=== PATIENT | male | born 1980 | race Caucasian/White ===

== ENCOUNTER 2023-04-07 13:28 | Emergency (ER) | payer MEDICAID, SELFPAY ==
[2023-04-07 13:29] VITALS: BP 141/106; PULSE 121; RESP 16; TEMP 35.8; O2SAT 97; BMI 34.4
--- NOTE | 2023-04-07 14:44 | EDS_ITS ---
HPI History of Present Illness HPI Narrative: 43-year-old male states he injured his ankle 25 years ago around 18 years old. Never had it properly taking care of and gets chronic swelling in his ankle whenever he uses a lot. He works in [employer]. He was limping a lot recently and his boss wanted to come in to have it evaluated today. He denies any fall injury or trauma. He denies any fever or redness. Said this is very normal for his ankle to be swollen. Chief Complaint: Lower Extremity Injury Informant: patient and spouse/S.O. Occured/Mechanism Mechanism/Context: No injury and No blunt trauma Onset/Context/Timing Onset: Days Context: Gradual Onset Timing: Intermittent Quality of Pain: Dull and Aching Current Severity: Mild Maximum Severity: Mild Associated Symptoms Associated Symptoms: Negative for Parasthesia, Weakness or Loss of Funtion Narrative Narrative: 43-year-old male with acute on chronic right ankle swelling. History of prior injury. No acute trauma. Prior similar symptoms: Yes Recent Illness/Hospitalization: No PFSH PFSH no medical history Allergy/AdvReac Type Severity Reaction Status Date / Time No Known Allergies Allergy Verified 04/07/23 13:29 Social History Smoking Status: Never smoker ROS ROS ED ROS Narrative Denies recent illness. Review of Systems ROS Unobtainable: Denies due to encephalopathy Constitutional Constitutional ED: Denies chills or fever(s) Eyes Eyes: Denies blurry vision ENT ENT ED: Denies ear pain Cardiovascular Cardiovascular: Denies chest pain Respiratory/Chest Respiratory/Chest: Denies cough Gastrointestinal Gastrointestinal: Denies abdominal pain Genitourinary Genitourinary ED: Denies dysuria Musculoskeletal Musculoskeletal: Denies arthralgias Integumentary Denies abscess Neurologic Neurologic: Denies headache(s) Psychiatric Psychiatric: Denies anxiety Endocrine Endocrinology: Denies polydipsia Hematologic/Lymphatic Hematologic/Lymphatic: Denies easy bleeding Allergic/Immunologic Allergic/Immunologic ED: Denies mouth swelling EXAM Physical Exam Narrative Exam Narrative: -year-old male no acute distress. Vital signs stable afebrile. HEENT exam unremarkable lungs clear. Heart regular rhythm. Abdomen soft nontender. Moving all 4 extremities. Neurovascular intact. His right ankle is swelling on the lateral malleolus. Medial malleolus is unremarkable. His only minimally tender. He has normal dorsi plantarflexion. Normal Achilles tendon. Normal DP pulse. Foot itself nontender nonswollen. Normal cap refill. There is no signs of infection. Patient states this is not running that abnormal for his ankle to get swollen like this. Const Vital Signs: 04/07/23 13:29 Temperature 96.5 F L Temperature Source Temporal Pulse Rate 121 H Respiratory Rate 16 Blood Pressure 141/106 H Blood Pressure Mean 117 Pulse Ox 97 Oxygen Delivery Method Room Air Positive well nourished and well developed; Negative for obese, cachectic, contractures or unkempt General Appearance ED: well developed and NAD; Negative for unkempt, cachectic or contractures Nutritional Appearance: Negative for cachectic or obese HEENT Reports moist mucous membranes normocephalic and atraumatic; Negative for trauma or tenderness Eyes General Eye ED: Negative for other Neck full ROM and supple Thyroid: Negative for tender Lymph Lymphatic: other Chest Wall inspection of chest normal and palpation of chest normal Chest: Negative for other Resp normal respiratory effort, no retractions and clear to auscultation bilaterally Effort and Inspection: Negative for pain with movement Auscultation: Negative for rales, rhonchi or wheezes Cardio regular rate, regular rhythm, S1 normal heart sound, S2 normal heart sound and no murmurs GI non-tender, non-distended and no masses Inspection: Negative for abdominal distention Auscultation: normoactive bowel sounds Palpation: soft; Negative for tender or guarding Bladder / Kidney Exam: No other Back/Spine no CVA tenderness Extremity normal to inspection and full ROM Extremity Narrative: Except right ankle. Minimal last mildly swollen. Minimally tender. Not red. Not hot. Normal range of motion. Normal DP pulse. General Extremety ED: Yes edema; Negative for cyanosis General Extremity: edema; Negative for cyanosis Neuro oriented x3, CN's II-XII intact bilaterally, moves all extremities and No no sensory deficits noted Sensorium / Orientation: oriented to person, oriented to place and oriented to time; Negative for orientation impaired, confused, lethargic or stuporous Motor Exam: strength 5/5 throughout Psych mental status grossly normal Appearance: Negative for unkempt Speech: No other Mood & Affect: Negative for anxious Skin no wounds Lesions: no lesions Rashes: no rashes Trauma: Negative for abrasion or laceration MDM MDM MDM Narrative Medical decision making narrative: 43-year-old male with acute on chronic right ankle swelling. Had an injury 25 years ago that he states was never lately taking care of. I offered the patient an x-ray to have further evaluation of his ankle to see if he has severe arthritis or nonhealed fracture from the past and he does not want an x-ray done. He did literally just wants a work excuse to be discharged home. Ice and elevate. Motrin for pain and swelling. Follow-up as needed. Discharge Plan Triage Chief Complaint: Lower Extremity Injury ED Provider: Michael Choe Dx/Rx/DC Orders Clinical Impression: Ankle joint pain Instructions: ED Arthralgia Primary Care Provider: Care Physician,No Primary Referrals: Rah Malloy MD [Med Staff - [employer]] - As soon as possible Care Physician,No Primary [Primary Care Provider] - Activity Restrictions/Additional Instructions: Suspect that you have arthritis in your ankle from the prior injury but difficult to know for sure without an x-ray. Ice and elevate. Motrin and Tylenol for pain. Follow-up with a local physician. Disposition Disposition: Home, Self Care
== END 2023-04-07 14:53 | disposition home or self-care (01) ==
PROVIDERS: Emergency Provider Emergency Medicine; Visit Provider Emergency Medicine
DX: M25.571 Pain in right ankle and joints of right foot (principal); M79.89 Other specified soft tissue disorders
CPT/HCPCS: 99282

== ENCOUNTER 2023-06-10 13:34 | Emergency (ER) | payer SELFPAY ==
[2023-06-10 13:35] VITALS: BP 156/95; PULSE 92; RESP 14; TEMP 36.4; O2SAT 98; BMI 34.0
--- NOTE | 2023-06-10 13:57 | ED.VIS.BACK ---
HPI History of Present Illness Chief Complaint: Back Informant: patient Onset/Context/Timing Onset: Days (2) Context: Gradual Onset Injury: lifting Timing: Continuous Quality: Dull Location: Lumbar Worsened by: improves with - (Laying back) Relieved by: Nothing Associated Symptoms Associated Symptoms: Negative for Numbness, Tingling, Radiation to Right Leg, Radiation to Left Leg, Fever, Abdominal Pain, Dysuria, Unable to Ambulate, Unable to Transfer, Urinary Retention, Urinary Incontinence, Constipation or Fecal Incontinence Narrative Narrative: Patient presents with back pain that has been waxing and waning over the past 2 days. Patient states he has a constant dull ache but intermittent spasm and sharp pain. Patient states he was doing some lifting recently. Patient denies any radiation of the pain. Patient states it is worse whenever he lays back. Patient states nothing seems to help with it. Patient denies any paresthesias or weakness. Patient denies any abdominal pain. Patient denies any bowel or bladder changes. Patient denies any saddle anesthesia. Patient denies any direct trauma. PFSH PFS Medical History no medical history no medical history Home Medications NK 06/10/23 [History Last Taken Unknown] cyclobenzaprine 10 mg tablet 10 mg PO QHS PRN PRN Muscle Spasm #10 TABLETS 06/10/23 [Rx Last Taken Unknown] naproxen 500 mg tablet 500 mg PO BID PRN #20 tabs 06/10/23 [Rx Last Taken Unknown] Allergy/AdvReac Type Severity Reaction Status Date / Time No Known Allergies Allergy Verified 04/07/23 13:29 Surgical History no surgical history no surgical history Social History Smoking Status: Former smoker ROS ROS ED Constitutional Constitutional ED: Denies chills or fever(s) Eyes Eyes: Denies blurry vision or change in vision ENT ENT ED: Denies rhinorrhea or sore throat Cardiovascular Cardiovascular: Denies chest pain or palpitations Respiratory/Chest Respiratory/Chest: Denies cough or dyspnea Gastrointestinal Gastrointestinal: Denies nausea or vomiting Genitourinary Genitourinary ED: Denies dysuria or hematuria Musculoskeletal Musculoskeletal: Reports back pain; Denies neck pain Integumentary Denies abscess or rash Neurologic Neurologic: Denies headache(s) or weakness Allergic/Immunologic Allergic/Immunologic ED: Denies mouth swelling or urticaria EXAM Physical Exam Const Vital Signs: 06/10/23 13:35 Temperature 97.6 F L Temperature Source Temporal Pulse Rate 92 Respiratory Rate 14 Blood Pressure 156/95 H Blood Pressure Mean 115 Pulse Ox 98 Oxygen Delivery Method Room Air Positive well nourished and well developed General Appearance ED: well developed and NAD HEENT Reports moist mucous membranes Neck supple and no JVD Resp normal respiratory effort and clear to auscultation bilaterally Cardio regular rate, regular rhythm and no murmurs GI normal to inspection, nondistended, normoactive bowel sounds and non-tender Palpation: soft Back/Spine Back/Spine Narrative: There is tenderness and spasm over the left lumbar paraspinal muscles. There is no midline tenderness. There is no edema or ecchymosis. There is no bony crepitance or step-off noted. Range of motion was slightly limited in all motions of the lumbar spine secondary to pain. Strength is 5/5 bilaterally in the lower extremities. There are no sensory deficits noted. Straight leg raises were negative bilaterally. Lumbar Spine / Lower Back: ROM limited and straight leg raise negative bilaterally Extremity normal to inspection General Extremety ED: Negative for edema or tenderness General Extremity: Negative for edema Neuro oriented x3, CN's II-XII intact bilaterally and no sensory deficits noted Sensorium / Orientation: alert Motor Exam: strength 5/5 throughout Psych mental status grossly normal Skin no rashes or lesions noted MDM MDM MDM Narrative Medical decision making narrative: Patient was advised that this most likely lumbosacral strain. Patient was given injection of Toradol and Norflex here. Patient was given prescriptions for Naprosyn and Flexeril. Patient was instructed to use ice to the area. Patient was instructed to follow-up with his primary care physician in 5 to 7 days. Patient was given restrictions for work. Patient understood and was agreeable with the plan. All questions were answered. Discharge Plan Triage Chief Complaint: Back ED Provider: Cortes Alvarez Dx/Rx/DC Orders Clinical Impression: Acute lumbosacral myofascial strain Instructions: ED Back Spasm, No Trauma, ED Back Sprain/Strain Prescriptions: New cyclobenzaprine [cyclobenzaprine] 10 mg tablet 10 mg PO QHS PRN PRN (Reason: Muscle Spasm) Qty: 10 0RF naproxen 500 mg tablet 500 mg PO BID PRN Qty: 20 0RF No Action NK Stand Alone Forms: Work Status Form Primary Care Provider: Care Physician,No Primary Referrals: Robinson Schmidt MD [Med Staff - Active Staff] - 5-7 Days Care Physician,No Primary [Primary Care Provider] - Disposition Disposition: Home, Self Care
[2023-06-10] MEDS: Ketorolac 60 MG/2 ML Vial IM (14:01)
[2023-06-10] MEDS: Orphenadrine 60 MG/2 ML Ampul IM (14:01)
== END 2023-06-10 14:26 | disposition home or self-care (01) ==
PROVIDERS: Emergency Provider Emergency Medicine; Visit Provider Emergency Medicine
DX: S39.012A Strain of muscle, fascia and tendon of lower back, initial encounter (principal); Z87.891 Personal history of nicotine dependence; X50.0XXA Overexertion from strenuous movement or load, initial encounter
CPT/HCPCS: 96372; 99282